=== PATIENT | male | born 1990 | race Caucasian/White ===

== ENCOUNTER 2017-01-14 15:07 | Emergency (ER) | payer SELFPAY ==
[~2017-01-14] VITALS: Ht 182.9 cm; Wt 77.1 kg
[2017-01-14 16:02] LABS: ALANINE AMINOTRANSFERASE 27 U/L (0-55); ALBUMIN 3.9 GM/DL (3.2-4.5); ANION GAP 6 MMOL/L (5-14); ASPARTATE AMINO TRANSFERASE 16 U/L (5-34); BILIRUBIN,TOTAL 0.7 MG/DL (0.1-1.0); BLOOD UREA NITROGEN 13 MG/DL (7-18); BUN/CREATININE RATIO 12; CALCIUM 9.2 MG/DL (8.5-10.1); CARBON DIOXIDE 28 MMOL/L (21-32); CHLORIDE 107 MMOL/L (98-107); CREATININE SERUM 1.11 MG/DL (0.60-1.30); GFR ESTIMATED > 60; GLUCOSE 101 MG/DL (70-105); POTASSIUM 3.8 MMOL/L (3.6-5.0); SODIUM 141 MMOL/L (135-145); TOTAL PROTEIN 6.5 GM/DL (6.4-8.2); hs C REACTIVE PROTEIN 0.13 MG/DL (0.00-0.50)
--- NOTE | 2017-01-14 16:05 | Diagnostic Imaging Report ---
INDICATION: Right upper quadrant abdominal pain for two months. FINDINGS: Upright and supine images show lung bases to be clear. Stomach and small bowel are not distended. The colon shows normal stool and gas pattern. There are no pathologic calcifications. No organomegaly. No bony abnormalities demonstrated. IMPRESSION: Normal abdomen series. Dictated by: Dictated on workstation # [id number]
[2017-01-14 16:10] LABS: BASOPHILS # (AUTO) 0.1 10^3/uL (0.0-0.1); BASOPHILS % (AUTO) 1 % (0-10); BILIRUBIN,URINE NEGATIVE (NEGATIVE); EOSINOPHILS # (AUTO) 0.3 10^3/uL (0.0-0.3); EOSINOPHILS % (AUTO) 3 % (0-10); KETONES,URINE NEGATIVE (NEGATIVE); LEUKOCYTE ESTERASE ,URINE NEGATIVE (NEGATIVE); LYMPHOCYTES # (AUTO) 2.4 X 10^3 (1.0-4.0); LYMPHOCYTES % (AUTO) 23 % (12-44); MEAN CORPUSCULAR HEMOGLOBIN 31 PG (25-34); MEAN CORPUSCULAR HGB CONC 35 G/DL (32-36); MEAN CORPUSCULAR VOLUME 89 FL (80-99); MEAN PLATELET VOLUME 11.2 FL (7.4-10.4); MONOCYTES # (AUTO) 0.9 X 10^3 (0.0-1.0); MONOCYTES % (AUTO) 9 % (0-12); NEUTROPHILS # (AUTO) 6.8 X 10^3 (1.8-7.8); NEUTROPHILS % (AUTO) 65 % (42-75); NITRITE,URINE NEGATIVE (NEGATIVE); PH,URINE 8 (5-9); PLATELET COUNT 231 10^3/uL (130-400); PROTEIN,URINE NEGATIVE (NEGATIVE); RED BLOOD COUNT 5.46 10^6/uL (4.35-5.85); RED CELL DISTRIBUTION WIDTH 12.7 % (10.0-14.5); UROBILINOGEN,URINE NORMAL (NORMAL); WHITE BLOOD COUNT 10.5 10^3/uL (4.3-11.0)
[2017-01-14 16:25] LABS: WBC,URINE RARE /HPF
--- NOTE | 2017-01-14 16:37 | ED Abdominal Pain ---
General Chief Complaint: Abdominal/GI Problems Stated Complaint: ABDOMINAL/BACK PAIN Nursing Triage Note: ARRIVED VIA AMB TO ROOM 08 WITHOUT DIFFICULTY. COMPLAINS OF RIGHT UPPER QUAD ABD PAIN THAT RAIDATES INTO BACK STARTING TODAY AT 0400. STATES HE HAS HAD THIS PAIN BEFORE BUT HAS NOT HAD TX FOR IT. Sepsis Screen: No Definite Risk Source of Information: Patient Exam Limitations: No Limitations History of Present Illness Time Seen By Provider: 15:20 Initial Comments This 26-year-old young man presents to the emergency room with right upper quadrant pain radiating to the back that started around 04:00 this morning. He has had other episodes over the last 2-3 months as well. Pain seems to be triggered and worsened by fatty or greasy foods. Pain is presently rated as 5/ 10. Patient's last meal was about 2 hours ago when he ate a burger at [employer]. He denies any nausea, vomiting, diarrhea, or other associated GI symptoms. He has a mild headache. He has done some research and talked to friends and believes he has a gallbladder issue. Allergies and Home Medications Allergies Coded Allergies: No Known Drug Allergies (Unverified , 01/14/17) Home Medications No Active Prescriptions or Reported Meds Review of Systems Constitutional: no symptoms reported EENTM: No Symptoms Reported Respiratory: No Symptoms Reported Cardiovascular: No Symptoms Reported Gastrointestinal: See HPI Genitourinary: No Symptoms Reported Musculoskeletal: no symptoms reported Skin: no symptoms reported Psychiatric/Neurological: No Symptoms Reported Endocrine: No Symptoms Reported Past Rxyswqp-Nnaoyn-Hljvvb Hx Patient Social History Alcohol Use: Denies Use Recreational Drug Use: No Smoking Status: Current Everyday Smoker Recent Foreign Travel: No Contact w/Someone Who Travel: No Recent Infectious Disease Expo: No Recent Hopitalizations: No Surgeries HX Surgeries: Yes (Incision and drainage of MRSA axillary abscess) Respiratory Hx Respiratory Disorders: No Cardiovascular Hx Cardiac Disorders: No Neurological Hx Neurological Disorders: No Reproductive System Hx Reproductive Disorders: No Genitourinary Hx Genitourinary Disorders: No Gastrointestinal Hx Gastrointestinal Disorders: No Musculoskeletal Hx Musculoskeletal Disorders: No Endocrine Hx Endocrine Disorders: No HEENT HX ENT Disorders: No Cancer Hx Cancer: No Psychosocial Hx Psychiatric Problems: No Integumentary HX Skin/Integumentary Disorder: Yes (MRSA abscess) Physical Exam Vital Signs VS - Last 72 Hours, by Label 01/14/17 01/14/17 15:10 16:40 Temp 98.4 Pulse 67 77 Resp 16 16 B/P (MAP) 117/73 Pulse Ox 98 99 O2 Delivery Room Air Capillary Refill : Less Than 3 Seconds General Appearance: WD/WN, no apparent distress HEENT: PERRL/EOMI, normal ENT inspection, pharynx normal Neck: normal inspection Respiratory: lungs clear, normal breath sounds, no respiratory distress, no accessory muscle use Cardiovascular: regular rate, rhythm, no edema, no murmur Gastrointestinal: normal bowel sounds, soft, tenderness (Right upper quadrant with positive Armstrong's) Extremities: normal inspection, no pedal edema 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, no motor/sensory deficits, alert, normal mood/affect, oriented x 3 Skin: normal color, warm/dry Progress/Results/Core Measures Results/Orders Lab Results Laboratory Tests Test 01/14/17 15:35 Range/Units White Blood Count 10.5 4.3-11.0 10^3/uL Red Blood Count 5.46 4.35-5.85 10^6/uL Hemoglobin 16.9 13.3-17.7 G/DL Hematocrit 49 40-54 % Mean Corpuscular Volume 89 80-99 FL Mean Corpuscular Hemoglobin 31 25-34 PG Mean Corpuscular Hemoglobin Concent 35 32-36 G/DL Red Cell Distribution Width 12.7 10.0-14.5 % Platelet Count 231 130-400 10^3/uL Mean Platelet Volume 11.2 H 7.4-10.4 FL Neutrophils (%) (Auto) 65 42-75 % Lymphocytes (%) (Auto) 23 12-44 % Monocytes (%) (Auto) 9 0-12 % Eosinophils (%) (Auto) 3 0-10 % Basophils (%) (Auto) 1 0-10 % Neutrophils # (Auto) 6.8 1.8-7.8 X 10^3 Lymphocytes # (Auto) 2.4 1.0-4.0 X 10^3 Monocytes # (Auto) 0.9 0.0-1.0 X 10^3 Eosinophils # (Auto) 0.3 0.0-0.3 10^3/uL Basophils # (Auto) 0.1 0.0-0.1 10^3/uL Urine Color YELLOW Urine Clarity SLIGHTLY CLOUDY Urine pH 8 5-9 Urine Specific [place] 1.015 L 1.016-1.022 Urine Protein NEGATIVE NEGATIVE Urine Glucose (UA) NEGATIVE NEGATIVE Urine Ketones NEGATIVE NEGATIVE Urine Nitrite NEGATIVE NEGATIVE Urine Bilirubin NEGATIVE NEGATIVE Urine Urobilinogen NORMAL NORMAL MG/DL Urine Leukocyte Esterase NEGATIVE NEGATIVE Urine RBC (Auto) NEGATIVE NEGATIVE Urine RBC NONE /HPF Urine WBC RARE /HPF Urine Crystals PRESENT H /LPF Urine Amorphous Sediment LARGE [place]ORIN PHOSPHATE H /LPF Urine Bacteria NEGATIVE /HPF Urine Casts NONE /LPF Urine Mucus NEGATIVE /LPF Urine Culture Indicated NO Sodium Level 141 135-145 MMOL/L Potassium Level 3.8 3.6-5.0 MMOL/L Chloride Level 107 98-107 MMOL/L Carbon Dioxide Level 28 21-32 MMOL/L Anion Gap 6 5-14 MMOL/L Blood Urea Nitrogen 13 7-18 MG/DL Creatinine 1.11 0.60-1.30 MG/DL Estimat Glomerular Filtration Rate > 60 BUN/Creatinine Ratio 12 Glucose Level 101 70-105 MG/DL Calcium Level 9.2 8.5-10.1 MG/DL Total Bilirubin 0.7 0.1-1.0 MG/DL Aspartate Amino Transf (AST/SGOT) 16 5-34 U/L Alanine Aminotransferase (ALT/SGPT) 27 0-55 U/L Alkaline Phosphatase 54 40-136 U/L C-Reactive Protein High Sensitivity 0.13 0.00-0.50 MG/DL Total Protein 6.5 6.4-8.2 GM/DL Albumin 3.9 3.2-4.5 GM/DL My Orders Orders - ESTEBAN ONEILL MD Ua Culture If Indicated (01/14/17 15:20) Cbc With Automated Diff (01/14/17 15:28) Comprehensive Metabolic Panel (01/14/17 15:28) Hs C Reactive Protein (01/14/17 15:28) Saline Lock/Iv-Start (01/14/17 15:28) Abdomen, Flat & Upright/Decub (01/14/17 15:28) Vital Signs/I&O Vital Sign - Last 12Hours 01/14/17 01/14/17 15:10 16:40 Temp 98.4 Pulse 67 77 Resp 16 16 B/P (MAP) 117/73 Pulse Ox 98 99 O2 Delivery Room Air Blood Pressure Mean: 88 Progress Note : Progress Note Workup was unremarkable. There were no findings in the labs are vitals to suggest acute cholecystitis or other severe infection. Patient had eaten a greasy meal within 2 hours of arrival. He is therefore not a good candidate for ultrasound evaluation at this time. He was advised to obtain financial assistance and obtain an ultrasound as an outpatient when he has been fasting for the appropriate duration. We reviewed the necessity of a low-fat diet. Diagnostic Imaging Diagonstic Imaging: Xray Plain Films/CT/US/NM/MRI: abdomen, pelvis Comments X-rays of the abdomen and pelvis viewed by me and report reviewed. See report below: NAME: MAKENNA TITUS [employer] REC#: [id number] PT STATUS: REG ER : 1990 PHYSICIAN: ESTEBAN ONEILL MD ADMIT DATE: 01/14/17/ER Draft Date of Exam:01/14/17 ABDOMEN, FLAT & UPRIGHT/DECUB INDICATION: Right upper quadrant abdominal pain for two months. FINDINGS: Upright and supine images show lung bases to be clear. Stomach and small bowel are not distended. The colon shows normal stool and gas pattern. There are no pathologic calcifications. No organomegaly. No bony abnormalities demonstrated. IMPRESSION: Normal abdomen series. Dictated on workstation # [id number] Dict: 01/14/17 1559 Trans: 01/14/17 1604 [facility] [id number] Interpreted by: ELIZABETH ROMO MD Departure Impression Impression: Primary Impression: Right upper quadrant pain Disposition: 01 HOME, SELF-CARE Condition: Improved Departure-Patient Inst. Decision time for Depature: 16:30 Referrals: NO,LOCAL PHYSICIAN (PCP/Family) Primary Care Physician Patient Instructions: Acute Abdomen (Belly Pain), Adult (DC), POSS GALLSTONE-W/ BILIARY COLIC Add. Discharge Instructions: Eat an extremely low-fat diet. Avoid any fatty or greasy foods. Pickup financially paperwork from the hospital on your way out of the emergency room today. Schedule a gallbladder ultrasound. You also need to follow-up with a primary care provider who can review the ultrasound results with you. Return to the ER if symptoms worsen. All discharge instructions reviewed with patient and/or family. Voiced understanding. Scripts No Active Prescriptions or Reported Meds ESTEBAN ONEILL MD Jan 14, 2017 16:37
[2017-01-14 16:40] VITALS: BP 111/67
== END 2017-01-14 16:40 | disposition home or self-care (01) ==
LOC: ER 15:10
DX: R10.11 Right upper quadrant pain (principal); F17.210 Nicotine dependence, cigarettes, uncomplicated
CPT/HCPCS: 36415; 74020; 80053; 81000; 85025; 86141

== ENCOUNTER 2017-01-19 23:41 | Emergency (ER) | payer SELFPAY ==
[~2017-01-19] VITALS: Ht 182.9 cm; Wt 77.1 kg
--- NOTE | 2017-01-20 00:34 | ED Integumentary General ---
General Chief Complaint: Skin/Wound Problems Stated Complaint: ABSCESS IN LEFT ARM PIT Nursing Triage Note: ABCESS LEFT AXILLA Source: patient, spouse Exam Limitations: no limitations History of Present Illness Time seen by provider: 00:30 Initial Comments Patient presents to the ER with his significant other by private conveyance with chief complaint of abscess aggressively worsening in the left axilla and draining small amounts of white yellow drainage. He's had one other years ago in his lifetime but no other local recurrences. He is not immunocompromised however he does smoke. No fevers, chills, nausea, via vomiting, diarrhea. Allergies and Home Medications Allergies Coded Allergies: No Known Drug Allergies (Unverified , 01/14/17) Home Medications No Active Prescriptions or Reported Meds Constitutional: No chills, No diaphoresis, No fever, No malaise Respiratory: No cough, No short of breath Cardiovascular: No chest pain, No palpitations Gastrointestinal: No diarrhea, No nausea Genitourinary: No discharge, No dysuria Musculoskeletal: No back pain, No joint pain Skin: No pruritus, No rash Psychiatric/Neurological: Denies Headache, Denies Numbness Past Hqwmwmc-Ttvgua-Bntspg Hx Patient Social History Alcohol Use: Denies Use Recreational Drug Use: No Smoking Status: Current Everyday Smoker Type Used: Cigarettes 2nd Hand Smoke Exposure: Yes Recent Foreign Travel: No Contact w/Someone Who Travel: No Recent Infectious Disease Expo: No Recent Hopitalizations: No Immunizations Up To Date Tetanus Booster (TDap): Less than 5yrs PED Vaccines UTD: Yes Seasonal Allergies Seasonal Allergies: No Surgeries HX Surgeries: Yes (Incision and drainage of MRSA axillary abscess) Respiratory Hx Respiratory Disorders: No Cardiovascular Hx Cardiac Disorders: No Neurological Hx Neurological Disorders: No Reproductive System Hx Reproductive Disorders: No Genitourinary Hx Genitourinary Disorders: No Gastrointestinal Hx Gastrointestinal Disorders: No Musculoskeletal Hx Musculoskeletal Disorders: No Endocrine Hx Endocrine Disorders: No HEENT HX ENT Disorders: No Cancer Hx Cancer: No Psychosocial Hx Psychiatric Problems: No Integumentary HX Skin/Integumentary Disorder: Yes (MRSA abscess) Physical Exam Vital Signs Vital Sign - Last 12Hours 01/19/17 23:58 Temp 98.8 Pulse 73 Resp 16 B/P (MAP) 116/73 Pulse Ox 99 O2 Delivery Room Air Capillary Refill : Less Than 3 Seconds General Appearance: WD/WN, no apparent distress HEENT: PERRL/EOMI, pharynx normal Neck: non-tender, normal inspection Cardiovascular: normal peripheral pulses, regular rate, rhythm Respiratory: chest non-tender, lungs clear, normal breath sounds Gastrointestinal: non tender, soft Extremities: normal inspection, normal capillary refill Neurologic/Psychiatric: alert, oriented x 3 Skin: normal color, warm/dry, other (0.5 x 3 cm nodule of fluctuant erythematous with a poor in the left axilla with scant amount of purulent drainage) I&D : Site: left axilla Blade Size: 11 I & D Procedure: betadine prep Progress Patient was cleaned with Betadine preps 3 and a 22-gauge 1-1/2 inch needle caring 2% with epinephrine lidocaine was applied across the skin. 6 cc and a ring block fashion around the abscess were applied and the patient was ascertained to be numb. 11 blade scalpel was then used to make a cross feliciano incision in the middle of the poor proximately 0.[address]. 5-10 cc of caseous purulent drainage were then expressed. Blunt end of a Q-tip was used to probe and break up loculations and the wound was expressed. The wound was then flushed with 15 cc of saline using a 10 cc syringe and dressed with a light areolar gauze dressing. Progress/Results/Core Measures Results/Orders My Orders Orders - VIRGIE SLATER Lidocaine/Epi 2% 1:100,000 (Xylocaine/Ep (01/20/17 00:45) Medications Given in ED Current Medications Medications Dose Ordered Sig/Loyda Route Start Time Stop Time Status Last Admin Dose Admin Lidocaine/ Epinephrine 20 ml ONCE ONCE INJ 01/20/17 00:45 01/20/17 00:47 DC 01/20/17 00:40 20 ML Vital Signs/I&O Vital Sign - Last 12Hours 01/19/17 23:58 Temp 98.8 Pulse 73 Resp 16 B/P (MAP) 116/73 Pulse Ox 99 O2 Delivery Room Air Blood Pressure Mean: 87 Departure Impression Impression: Primary Impression: Abscess Disposition: 01 HOME, SELF-CARE Condition: Improved Departure-Patient Inst. Decision time for Depature: 01:01 Referrals: NO,LOCAL PHYSICIAN (PCP/Family) Primary Care Physician Patient Instructions: Abscess Incision and Drainage (DC) Add. Discharge Instructions: You may dress the area loosely to catch the drainage but do not plug the wound or put anything in the wound. Clean it with soap and water do not use alcohol, hydrogen peroxide, iodine. Do not submerge the wound until it is closed over for at least 3-4 days. Take the antibiotics 1 tablet by mouth twice daily until completion. If you're worried about having loose stools which is a common side effect of all antibiotics and you should take yogurt with active culture twice daily or probiotics one capsule twice daily. If you're having worsening symptoms such as fever, nausea, vomiting, diarrhea then you should consider returning to the ER or following up with your primary care physician. If you're having pain he should apply a warm compress over the area as often as you like and take Tylenol 1000 mg every 8 hours as needed or ibuprofen 800 mg every 8 hours as needed. The numbness from the medicine I put in your arm will wear off in about 45 minutes to an hour. All discharge instructions reviewed with patient and/or family. Voiced understanding. Scripts No Active Prescriptions or Reported Meds VIRGIE SLATER Jan 20, 2017 00:34
[2017-01-20] MEDS ORDERED: LIDOCAINE/EPI 2% 1:100,00 (XYLOCAINE) 20 ML VIAL INJ ONE (00:45)
[2017-01-20] MEDS ORDERED: TRIM/SULFAMETH 160/800 (SEPTRA DS) TAB PO ONE (01:00)
[2017-01-20 01:16] VITALS: BP 116/73
[2017-01-20] MEDS ORDERED: SULF1TAB35 PO (01:16)
== END 2017-01-20 01:16 | disposition home or self-care (01) ==
LOC: EDUNIT# 23:41 → ER 23:44
DX: L02.412 Cutaneous abscess of left axilla (principal); F17.210 Nicotine dependence, cigarettes, uncomplicated
CPT/HCPCS: 99284